=== PATIENT | female | born 1950 | race American Indian/Alaskan Native ===

== ENCOUNTER 2018-07-24 04:13 | Emergency (ER) | payer SELFPAY ==
[2018-07-24 07:14] LABS: Basophils % (Auto) 0.4 % (0.0-1.8); Eosinophils # (Auto) 0.4 K/mm3 (0.0-0.4); Eosinophils % (Auto) 5.2 % (0.0-4.3); Hematocrit 39.4 % (30.3-42.9); Hemoglobin 13.1 gm/dl (10.1-14.3); Lymphocytes # (Auto) 1.3 K/mm3 (1.2-5.4); Lymphocytes % (Auto) 17.3 % (13.4-35.0); Mean Corpuscular HGB Conc 33 % (30-34); Mean Corpuscular Volume 92 fl (79-97); Monocytes # (Auto) 0.4 K/mm3 (0.0-0.8); Monocytes % (Auto) 5.8 % (0.0-7.3); Platelet Count 153 K/mm3 (140-440); Red Blood Count 4.27 M/mm3 (3.65-5.03); Red Cell Distribution Width 14.5 % (13.2-15.2)
[2018-07-24 07:19] LABS: INR 1.18 (0.87-1.13)
[2018-07-24 07:20] LABS: Partial Thromboplastin Time 32.2 Sec. (24.2-36.6)
[2018-07-24 07:27] LABS: Creatine Kinase MB 3.6 ng/mL (0.0-4.0)
[2018-07-24 07:29] LABS: Alanine Aminotransferase 16 units/L (7-56); Albumin 3.9 g/dL (3.9-5)
[2018-07-24 07:30] LABS: BUN/Creatinine Ratio 19; Blood Urea Nitrogen 17 mg/dL (7-17); Calcium 9.4 mg/dL (8.4-10.2); Hemolysis Index 11
[2018-07-24 07:58] LABS: Bilirubin,Direct < 0.2 mg/dL (0-0.2)
[2018-07-24] MEDS ORDERED: K-DUR PO ONE (09:14)
--- NOTE | 2018-07-24 09:18 | Emergency Department Report ---
ED General Adult HPI - General Chief complaint: Dyspnea/Respdistress Stated complaint: COUGH/SOB Time Seen by Provider: 07/24/18 06:26 Source: patient Mode of arrival: Ambulatory Limitations: No Limitations - History of Present Illness Initial comments: 67 year old female complains of cough occasionally productive of white sputum. Patient thinks one day last week she might have had a fever but it did not persist. She did not take her temperature. She denies chest pain pressure or tightness. She denies recent travel or leg pain or swelling. She is not short of breath upon my encounter although she mentioned this at triage. It is apparently very mild in intensity and she does not complain of it to me. She hasn't had any wheezing. She does have a history of atrial fibrillation and is taking Eliquis. -: Gradual, days(s), week(s) Severity scale (0 -10): 0 Improves with: none Worsens with: none Associated Symptoms: denies other symptoms - Related Data Previous Rx's Medication Instructions Recorded Last Taken Type Azithromycin [Zithromax Z-AMADA] 250 mg PO DAILY #6 tablet 07/24/18 Unknown Rx Potassium Chloride [Klor-Con 8] 8 meq PO QDAY #30 tablet 07/24/18 Unknown Rx Allergies Allergy/AdvReac Type Severity Reaction Status Date / Time No Known Allergies Allergy Unverified 07/24/18 04:19 ED Review of Systems ROS: Stated complaint: COUGH/SOB Other details as noted in HPI Constitutional: denies: chills, fever Eyes: denies: eye pain, eye discharge, vision change ENT: denies: ear pain, throat pain Respiratory: cough, shortness of breath (mild). denies: wheezing Cardiovascular: denies: chest pain, palpitations Endocrine: no symptoms reported Gastrointestinal: denies: abdominal pain, nausea, diarrhea Genitourinary: denies: urgency, dysuria, discharge Musculoskeletal: denies: back pain, joint swelling, arthralgia Skin: denies: rash, lesions Neurological: denies: headache, weakness, paresthesias Psychiatric: denies: anxiety, depression Hematological/Lymphatic: denies: easy bleeding, easy bruising ED Past Medical Hx - Past Medical History Previous Medical History?: Yes Hx Hypertension: Yes Additional medical history: Afib - Surgical History Past Surgical History?: Yes Additional Surgical History: Pacemaker, ablation, tubaligation - Social History Smoking Status: Never Smoker Substance Use Type: None - Medications Home Medications: Home Medications Medication Instructions Recorded Confirmed Last Taken Type Azithromycin [Zithromax Z-AMADA] 250 mg PO DAILY #6 tablet 07/24/18 Unknown Rx Potassium Chloride [Klor-Con 8] 8 meq PO QDAY #30 tablet 07/24/18 Unknown Rx ED Physical Exam - General Limitations: No Limitations General appearance: alert, in no apparent distress - Head Head exam: Present: atraumatic, normocephalic - Eye Eye exam: Present: normal appearance. Absent: scleral icterus - ENT ENT exam: Present: mucous membranes moist - Neck Neck exam: Present: normal inspection. Absent: meningismus - Respiratory Respiratory exam: Present: normal lung sounds bilaterally. Absent: respiratory distress - Cardiovascular Cardiovascular Exam: Present: regular rate, normal rhythm. Absent: systolic murmur, diastolic murmur, rubs, gallop - GI/Abdominal GI/Abdominal exam: Present: soft, normal bowel sounds. Absent: distended, tenderness, guarding, rebound, rigid - Extremities Exam Extremities exam: Present: normal inspection - Back Exam Back exam: Present: normal inspection - Neurological Exam Neurological exam: Present: alert, oriented X3, CN II-XII intact. Absent: motor sensory deficit - Psychiatric Psychiatric exam: Present: normal affect, normal mood - Skin Skin exam: Present: warm, dry, intact, normal color. Absent: rash ED Course Vital Signs 07/24/18 07/24/18 07/24/18 04:16 06:00 06:05 Temperature 98.2 F Pulse Rate 82 Respiratory 18 17 Rate Blood Pressure 133/82 Blood Pressure [Left] O2 Sat by Pulse 98 99 99 Oximetry 07/24/18 07/24/18 07/24/18 06:08 06:16 06:30 Temperature 98 F Pulse Rate 60 60 60 Respiratory 14 15 14 Rate Blood Pressure Blood Pressure 127/79 [Left] O2 Sat by Pulse 99 96 96 Oximetry 07/24/18 07/24/18 07/24/18 06:46 07:00 07:16 Temperature Pulse Rate 60 64 60 Respiratory 13 16 15 Rate Blood Pressure 132/70 132/70 Blood Pressure [Left] O2 Sat by Pulse 98 100 96 Oximetry ED Medical Decision Making - Lab Data Result diagrams: 07/24/18 06:56 07/24/18 06:56 Laboratory Results - last 24 hr 07/24/18 07/24/18 07/24/18 06:56 06:56 06:56 WBC 7.6 RBC 4.27 Hgb 13.1 Hct 39.4 MCV 92 MCH 31 MCHC 33 RDW 14.5 Plt Count 153 Lymph % (Auto) 17.3 [place] % (Auto) 5.8 Eos % (Auto) 5.2 H Baso % (Auto) 0.4 Lymph # 1.3 [place] # 0.4 Eos # 0.4 Baso # 0.0 Seg Neutrophils % 71.3 H Seg Neutrophils # 5.4 PT 14.7 INR 1.18 H APTT 32.2 D-Dimer 219.77 Sodium 142 Potassium 3.2 L Chloride 102.9 Carbon Dioxide 27 Anion Gap 15 BUN 17 Creatinine 0.9 Estimated GFR > 60 BUN/Creatinine Ratio 19 Glucose 103 H Calcium 9.4 Total Bilirubin Direct Bilirubin Indirect Bilirubin AST ALT Alkaline Phosphatase Total Creatine Kinase 245 H CK-MB (CK-2) 3.6 CK-MB (CK-2) Rel Index 1.4 Troponin T < 0.010 Total Protein Albumin Albumin/Globulin Ratio 07/24/18 06:56 WBC RBC Hgb Hct MCV MCH MCHC RDW Plt Count Lymph % (Auto) [place] % (Auto) Eos % (Auto) Baso % (Auto) Lymph # [place] # Eos # Baso # Seg Neutrophils % Seg Neutrophils # PT INR APTT D-Dimer Sodium Potassium Chloride Carbon Dioxide Anion Gap BUN Creatinine Estimated GFR BUN/Creatinine Ratio Glucose Calcium Total Bilirubin 0.70 Direct Bilirubin < 0.2 Indirect Bilirubin 0.5 AST 32 ALT 16 Alkaline Phosphatase 93 Total Creatine Kinase CK-MB (CK-2) CK-MB (CK-2) Rel Index Troponin T Total Protein 7.3 Albumin 3.9 Albumin/Globulin Ratio 1.1 - EKG Data -: EKG Interpreted by Mn EKG shows normal: sinus rhythm, axis, intervals, QRS complexes, ST-T waves Rate: normal - EKG Data Interpretation: nonspecific ST-T wave milad - Radiology Data Radiology results: image reviewed (pacemaker present, no acute pulmonary process. Vital cardiac decompensation.) Critical care attestation.: If time is entered above; I have spent that time in minutes in the direct care of this critically ill patient, excluding procedure time. ED Disposition Clinical Impression: Hypokalemia Acute bronchitis Qualifiers: Bronchitis organism: unspecified organism Qualified Code(s): J20.9 - Acute bronchitis, unspecified Disposition: DC-01 TO HOME OR SELFCARE Is pt being admited?: No Does the pt Need Aspirin: No Condition: Stable Instructions: Acute Bronchitis (ED), Hypokalemia (ED) Additional Instructions: Follow-up with usual physicians. Rx as directed. Return any acute change or problem. Prescriptions: Potassium Chloride [Klor-Con 8] 8 meq PO QDAY #30 tablet Azithromycin [Zithromax Z-AMADA] 250 mg PO DAILY #6 tablet Referrals: [facility] MD TIGIST [Primary Care Provider] - 3-5 Days Time of Disposition: 09:19
--- NOTE | 2018-07-24 10:10 | XRay Report ---
PROCEDURE: XR CHEST ROUTINE 2V TECHNIQUE: PA and lateral chest radiographs were obtained. HISTORY: STEFANY COMPARISONS: None. FINDINGS: Frontal and lateral views the chest were acquired. The heart is normal in size. There is a pacing device with leads in right atrium and ventricle. There is no evidence of congestive heart fail ure. IMPRESSION: No active disease in the chest This document is electronically signed by Tha Arce MD., July 24 2018 10:08:17 AM ET
[2018-07-24 10:51] VITALS: BP 114/75
== END 2018-07-24 10:51 | disposition home or self-care (01) ==
LOC: ED 04:13
DX: J20.9 Acute bronchitis, unspecified (principal); E87.6 Hypokalemia; I10 Essential (primary) hypertension; I48.91 Unspecified atrial fibrillation; Z95.0 Presence of cardiac pacemaker; Z98.51 Tubal ligation status
CPT/HCPCS: 36415; 71046; 80048; 80076; 82550; 82553; 84484; 85025; 85379; 85610; 85730; 93005; 93010; 99284

== ENCOUNTER 2020-06-12 14:55 | Emergency (ER) | payer OTHER ==
[2020-06-12 17:18] LABS: Basophils # (Auto) 0.1 K/mm3 (0.0-0.1); Basophils % (Auto) 0.8 % (0.0-1.8); Eosinophils # (Auto) 0.3 K/mm3 (0.0-0.4); Eosinophils % (Auto) 3.2 % (0.0-4.3); Hematocrit 44.2 % (30.3-42.9); Hemoglobin 14.9 gm/dl (10.1-14.3); Lymphocytes # (Auto) 1.5 K/mm3 (1.2-5.4); Lymphocytes % (Auto) 14.2 % (13.4-35.0); Mean Corpuscular HGB Conc 34 % (30-34); Mean Corpuscular Volume 95 fl (79-97); Monocytes # (Auto) 0.6 K/mm3 (0.0-0.8); Monocytes % (Auto) 5.7 % (0.0-7.3); Platelet Count 166 K/mm3 (140-440); Red Blood Count 4.66 M/mm3 (3.65-5.03)
--- NOTE | 2020-06-12 17:35 | Event Note ---
ED Screening Note ED Screening Note: states she feels light headed and near syncope denies any dizziness or room spinning states she has had hypoglycemia in the past states she has been experiencing for a few day no CP no SOB no fever no n/v/d PMHx chronic bronchitis, afib, pacemaker, HTN no allergies to meds states she took her medication today This initial assessment/diagnostic orders/clinical plan/treatment(s) is/are subject to change based on patients health status, clinical progression and re- assessment by fellow clinical providers in the ED. Further treatment and workup at subsequent clinical providers discretion. Patient/guardian urged not to elope from the ED as their condition may be serious if not clinically assessed and managed. Initial orders include: labs, EKG, CXR, UA
[2020-06-12 17:54] LABS: Alanine Aminotransferase 15 units/L (7-56); Albumin 4.6 g/dL (3.9-5); BUN/Creatinine Ratio 10; Blood Urea Nitrogen 8 mg/dL (7-17); Calcium 9.1 mg/dL (8.4-10.2); Hemolysis Index 160
--- NOTE | 2020-06-12 18:01 | XRay Report ---
CHEST 2 VIEWS INDICATION / CLINICAL INFORMATION: dizzy. COMPARISON: 07/12/2019 FINDINGS: SUPPORT DEVICES: Left sided pacemaker HEART / MEDIASTINUM: No significant abnormality. LUNGS / PLEURA: No significant pulmonary or pleural abnormality. No pneumothorax. ADDITIONAL FINDINGS: No significant additional findings. IMPRESSION: Pacing leads remain in place unchanged from 07/12/2019. No acute disease or interval change from the pr ior study Signer Name: Ho Mckenzie MD FACR Signed: 06/12/2020 5:57 PM Workstation Name: [id number]
[2020-06-12 18:38] LABS: Bilirubin,Urine NEG (Negative); Blood,Urine NEG (Negative); Color,Urine Straw (Yellow); Mucus,Urine FEW /HPF; Protein,Urine <15 mg/dL mg/dL (Negative); Urobilinogen,Urine < 2.0 mg/dL (<2.0)
--- NOTE | 2020-06-12 18:58 | Cat Scan Report ---
CT head/brain wo con INDICATION / CLINICAL INFORMATION: 69 years Female; head pressure, near syncope, elevated BP. TECHNIQUE: Routine CT head without contrast. All CT scans at this location are performed using CT dos e reduction for ALARA by means of automated exposure control. COMPARISON: None. FINDINGS: BRAIN / INTRACRANIAL CONTENTS: No acute hemorrhage, mass effect, midline shift, hydrocephalus, or acu te, large territorial infarct. No signs of significant atrophy or chronic infarct. Minimal, nonspecif ic white matter disease suggested. Small lacunar infarcts suggested in the anterior gangliocapsular r egions. CRANIOCERVICAL JUNCTION: No significant abnormality. ORBITS: No significant abnormality of visualized orbits. SINUSES / MASTOIDS: Partial opacification of the ethmoid seen. Air-fluid level seen in the right sphe noid sinus, as well as the right maxillary antrum. Partial opacification of the right frontal sinus. Mucous retention cyst/polyp seen in the left maxillary antrum. ADDITIONAL FINDINGS: None. IMPRESSION: 1. No focal mass, hemorrhage, hydrocephalus, or acute, large territorial infarct. 2. Sinus disease, as described above. Signer Name: Edil Peoples MD, III Signed: 06/12/2020 6:54 PM Workstation Name: [email or web address]
[2020-06-12] MEDS ORDERED: SODIUM CHLORIDE 0.9% 1000 ML 1,000 ML IV ONE (22:32)
--- NOTE | 2020-06-12 22:37 | Emergency Department Report ---
ED Dizziness HPI - General Chief Complaint: Dizziness Stated Complaint: DIZZY Time Seen by Provider: 06/12/20 22:55 Source: patient Mode of arrival: Ambulatory Limitations: No Limitations - History of Present Illness Initial Comments: Patient is a 69-year-old female that presents emergency room with complaints of intermittent dizziness and lightheadedness. Patient states she does not have any symptoms at this time. Patient states she is been resting in the waiting room and her symptoms have resolved. Patient states her symptoms started about 2 weeks ago and are intermittent. Patient states that about 2 to 3 days ago they became more frequent. Patient states that the dizziness and lightheadedness are better with rest and worse with exertion and movement. Patient states they are also modifications with position. Patient denies chest pain. Patient denies shortness of breath. Patient denies blurry vision. Patient denies syncopal episode. Patient denies loss of consciousness. Patient denies recent travel. Patient denies recent international travel. Patient denies exposure to the novel coronavirus. Patient denies sick contacts. Patient denies fever and chills. Patient denies cough. Patient denies diarrhea. Patient denies coming in contact with anybody with symptoms of the novel coronavirus. Complaint: dizziness, lightheadedness -: Sudden Timing: intermittent, now resolved Description: lightheadedness History of Same: No History of Trauma: No Severity: mild Improves With: rest Worsens With: position Associated Symptoms: denies other symptoms. denies: ataxia, chest pain, confusion, cough, diaphoresis, fever/chills, loss of appetite, malaise, rash, seizure, shortness of breath, syncope, weakness - Related Data Previous Rx's Medication Instructions Recorded Last Taken Type Azithromycin [Zithromax Z-AMADA] 250 mg PO DAILY #6 tablet 07/24/18 Unknown Rx Potassium Chloride [Klor-Con 8] 8 meq PO QDAY #30 tablet 07/24/18 Unknown Rx Dicyclomine [Bentyl] 20 mg PO QID #10 tablet 07/12/19 Unknown Rx Pantoprazole [Protonix] 40 mg PO QDAY #30 tablet 07/12/19 Unknown Rx Allergies Allergy/AdvReac Type Severity Reaction Status Date / Time No Known Allergies Allergy Verified 06/12/20 16:53 ED Review of Systems ROS: Stated complaint: DIZZY Other details as noted in HPI Constitutional: denies: chills, fever Eyes: denies: eye pain, eye discharge, vision change ENT: denies: ear pain, throat pain Respiratory: denies: cough, shortness of breath, wheezing Cardiovascular: denies: chest pain, palpitations Endocrine: no symptoms reported Gastrointestinal: denies: abdominal pain, nausea, diarrhea Genitourinary: denies: urgency, dysuria, discharge Musculoskeletal: denies: back pain, joint swelling, arthralgia Skin: denies: rash, lesions Neurological: as per HPI. denies: headache, weakness, paresthesias Psychiatric: denies: anxiety, depression Hematological/Lymphatic: denies: easy bleeding, easy bruising ED Past Medical Hx - Past Medical History Previous Medical History?: Yes Hx Hypertension: Yes Additional medical history: Afib - Surgical History Past Surgical History?: Yes Additional Surgical History: Pacemaker, ablation, tubaligation - Family History Family history: no significant - Social History Smoking Status: Never Smoker Substance Use Type: None - Medications Home Medications: Home Medications Medication Instructions Recorded Confirmed Last Taken Type Azithromycin [Zithromax Z-AMADA] 250 mg PO DAILY #6 tablet 07/24/18 Unknown Rx Potassium Chloride [Klor-Con 8] 8 meq PO QDAY #30 tablet 07/24/18 Unknown Rx Dicyclomine [Bentyl] 20 mg PO QID #10 tablet 07/12/19 Unknown Rx Pantoprazole [Protonix] 40 mg PO QDAY #30 tablet 07/12/19 Unknown Rx ED Physical Exam - General Limitations: No Limitations General appearance: alert, in no apparent distress - Head Head exam: Present: atraumatic, normocephalic - Eye Eye exam: Present: normal appearance, PERRL Pupils: Present: normal accommodation - ENT ENT exam: Present: mucous membranes moist - Neck Neck exam: Present: normal inspection, full ROM. Absent: tenderness, meningismus, lymphadenopathy, thyromegaly - Respiratory Respiratory exam: Present: normal lung sounds bilaterally. Absent: respiratory distress, wheezes, rales - Cardiovascular Cardiovascular Exam: Present: regular rate, normal rhythm. Absent: systolic murmur, diastolic murmur, rubs, gallop - GI/Abdominal GI/Abdominal exam: Present: soft, normal bowel sounds. Absent: distended, tenderness, guarding - Rectal Rectal exam: Present: deferred - Extremities Exam Extremities exam: Present: normal inspection - Back Exam Back exam: Present: normal inspection - Neurological Exam Neurological exam: Present: alert, oriented X3 - Psychiatric Psychiatric exam: Present: normal affect, normal mood - Skin Skin exam: Present: warm, dry, intact, normal color. Absent: rash ED Course Vital Signs 06/12/20 06/12/20 06/12/20 16:51 22:27 22:31 Temperature 97.9 F Pulse Rate 72 86 Respiratory 20 13 Rate Blood Pressure 164/131 145/97 146/94 O2 Sat by Pulse 100 98 Oximetry 06/12/20 06/12/20 06/12/20 22:45 23:01 23:03 Temperature Pulse Rate 78 76 70 Respiratory 20 15 17 Rate Blood Pressure 146/94 139/89 139/89 O2 Sat by Pulse 98 99 99 Oximetry 06/12/20 06/13/20 06/13/20 23:53 00:00 00:30 Temperature Pulse Rate 73 70 79 Respiratory 11 L 15 16 Rate Blood Pressure 139/89 130/86 140/76 O2 Sat by Pulse 98 98 Oximetry 06/13/20 01:03 Temperature Pulse Rate 78 Respiratory 10 L Rate Blood Pressure 140/76 O2 Sat by Pulse 97 Oximetry - Reevaluation(s) Reevaluation #1: Patient states she is asymptomatic. Patient tolerated p.o. intake. Patient had repeat labs her potassium normal. I discussed all results and clinical findings with patient. I discussed plan of care with patient. Patient agrees with plan of care. Patient is stable for discharge. Patient will be discharged home. Patient given discharge instru ctions. Patient voiced understanding of discharge instructions. 06/13/20 01:25 ED Medical Decision Making - Lab Data Result diagrams: 06/12/20 17:02 06/13/20 00:17 - EKG Data -: EKG Interpreted by Me EKG shows normal: sinus rhythm, axis, intervals, QRS complexes, ST-T waves Rate: normal - Radiology Data Radiology results: report reviewed, image reviewed interpreted by me: Chest x-ray: No pneumonia, no pneumothorax, pacer noted. No osseous findings, no acute findings CT head/brain wo con INDICATION / CLINICAL INFORMATION: 69 years Female; head pressure, near syncope, elevated BP. TECHNIQUE: Routine CT head without contrast. All CT scans at this location are performed using CT dose reduction for ALARA by means of automated exposure control. COMPARISON: None. FINDINGS: BRAIN / INTRACRANIAL CONTENTS: No acute hemorrhage, mass effect, midline shift, hydrocephalus, or acute, large territorial infarct. No signs of significant atrophy or chronic infarct. Minimal, nonspecific white matter disease suggested. Small lacunar infarcts suggested in the anterior gangliocapsular regions. CRANIOCERVICAL JUNCTION: No significant abnormality. ORBITS: No significant abnormality of visualized orbits. SINUSES / MASTOIDS: Partial opacification of the ethmoid seen. Air-fluid level seen in the right sphenoid sinus, as well as the right maxillary antrum. Partial opacification of the right frontal sinus. Mucous retention cyst/polyp seen in the left maxillary antrum. ADDITIONAL FINDINGS: None. IMPRESSION: 1. No focal mass, hemorrhage, hydrocephalus, or acute, large territorial infarct. 2. Sinus disease, as described above. CHEST 2 VIEWS INDICATION / CLINICAL INFORMATION: dizzy. COMPARISON: 07/12/2019 FINDINGS: SUPPORT DEVICES: Left sided pacemaker HEART / MEDIASTINUM: No significant abnormality. LUNGS / PLEURA: No significant pulmonary or pleural abnormality. No pneumothorax. ADDITIONAL FINDINGS: No significant additional findings. IMPRESSION: Pacing leads remain in place unchanged from 07/12/2019. No acute disease or interval change from the prior study - Medical Decision Making Patient is a 69-year-old female who presents emergency room with complaints of dizziness and lightheadedness has been going on for 2 weeks. Patient states her symptoms are intermittent and becoming more frequent. Patient states he came to the emergency room because of last 2 to 3 days has been more frequent. Patient ambulatory in the ER. Patient has a normal neurologic exam. Patient had a head CT which was negative for acute findings. Patient had a chest x-ray which was negative for acute findings. Patient had an EKG which was negative for acute findings showed normal ST. I personally reviewed the EKG and the chest x-ray. Patient had labs done which were essentially markable except for elevated potassium. Patient was given fluids. Patient tolerated p.o. intake. I then rechecked the potassium level. Patient's repeat potassium level was normal. Patient is stable for discharge. Patient discharged home. - Differential Diagnosis Chest pain, Critical care attestation.: If time is entered above; I have spent that time in minutes in the direct care of this critically ill patient, excluding procedure time. ED Disposition Clinical Impression: Dizziness, Lightheadedness, Dehydration, Hyperkalemia Disposition: TO HOME OR SELFCARE Is pt being admited?: No Does the pt Need Aspirin: No Condition: Stable Instructions: Hyperkalemia, [id number], Rehydration, Adult, Dizziness Additional Instructions: Patient to follow-up with primary care in 2 to 3 days. Patient to follow-up with cardiology and neurology in 2 to 3 days. Patient to rest. Patient to increase water. Patient to avoid strenuous exercise or heavy lifting until cleared by cardiology and neurology. Patient to take Tylenol or ibuprofen as needed for pain. Patient to return to the ER if condition worsens, changes or new symptoms arise. Referrals: PRIMARY MD ULISES [Primary Care Provider] - 2-3 Days WINSOME MCARTHUR MD [Staff Physician] - 2-3 Days RADHA WALLACE MD [Staff Physician] - 2-3 Days Time of Disposition: 01:31
[2020-06-13 01:00] LABS: BUN/Creatinine Ratio 8; Blood Urea Nitrogen 6 mg/dL (7-17); Calcium 8.5 mg/dL (8.4-10.2); Hemolysis Index 7
[2020-06-13 01:40] VITALS: BP 128/81
--- NOTE | 2020-06-13 17:51 | Electrocardiograph Report ---
[facility] Test Date: 2020-06-12 Test Time: 17:30:02 Pat Name: JACQUELINE RUIZ Department: Room: Gender: F Residential Roofer: JOSE ALEJANDRO : 1950 Requested By: TORIBIO PRUITT III Order Number: [id number] Reading MD: Nahid Hankins Measurements Intervals [place] Rate: 75 P: 62 ND: 149 QRS: -24 QRSD: 86 T: -59 QT: 466 QTc: 520 Interpretive Statements Sinus rhythm Anteroseptal infarct, age indeterminate Abnrm T, consider ischemia, anterolateral lds Prolonged QT interval No previous ECG available for comparison Electronically Signed On 06-13-2020 17:51:30 EDT by Nahid Hankins
== END 2020-06-13 01:40 | disposition home or self-care (01) ==
LOC: ED 14:55
DX: E86.0 Dehydration (principal); E87.6 Hypokalemia; I10 Essential (primary) hypertension; Z79.899 Other long term (current) drug therapy
CPT/HCPCS: 36415; 70450; 71046; 80048; 80053; 81001; 82550; 83735; 84484; 85025; 93005; 96360; 99284; J7030

== ENCOUNTER 2020-06-17 16:10 | Observation (INO) | payer MEDICAID, OTHER ==
[2020-06-17] MEDS ORDERED: ASPIRIN 325 MG TAB PO ONE (18:22)
[2020-06-17 19:25] LABS: Basophils # (Auto) 0.1 K/mm3 (0.0-0.1); Eosinophils # (Auto) 0.2 K/mm3 (0.0-0.4); Eosinophils % (Auto) 1.9 % (0.0-4.3); Hematocrit 43.7 % (30.3-42.9); Hemoglobin 14.5 gm/dl (10.1-14.3); Lymphocytes # (Auto) 1.7 K/mm3 (1.2-5.4); Lymphocytes % (Auto) 21.3 % (13.4-35.0); Mean Corpuscular HGB Conc 33 % (30-34); Mean Corpuscular Volume 95 fl (79-97); Monocytes # (Auto) 0.6 K/mm3 (0.0-0.8); Monocytes % (Auto) 7.2 % (0.0-7.3); Platelet Count 181 K/mm3 (140-440); Red Blood Count 4.58 M/mm3 (3.65-5.03); Red Cell Distribution Width 14.1 % (13.2-15.2)
--- NOTE | 2020-06-17 19:35 | Event Note ---
ED Screening Note Date of service: 06/17/20 Time: 19:34 ED Screening Note: Patient presents with complaints of diffuse anterior chest pain. Onset yesterday. She states been intermittent in nature. She denies any other associated symptoms. Past medical history includes A. fib status post ablation, and status post pacemaker, currently on Eliquis; hypertension and hyperlipidemia. She states that she had a treadmill stress test about 5 years ago and at that time it was okay. This initial assessment/diagnostic orders/clinical plan/treatment(s) is/are subject to change based on patients health status, clinical progression and re- assessment by fellow clinical providers in the ED. Further treatment and workup at subsequent clinical providers discretion. Patient/guardian urged not to elope from the ED as their condition may be serious if not clinically assessed and managed. Initial orders include: Chest pain order set
--- NOTE | 2020-06-17 19:35 | XRay Report ---
CHEST 2 VIEWS INDICATION / CLINICAL INFORMATION: Chest pain. COMPARISON: 06/12/20. FINDINGS: SUPPORT DEVICES: The position of the dual chamber left subclavian transvenous pacemaker has not vargas ed. HEART / MEDIASTINUM: The heart size and pulmonary vasculature are normal. There is mild aortic tortuo sity without aneurysm. LUNGS / PLEURA: No significant pulmonary or pleural abnormality. No pneumothorax. ADDITIONAL FINDINGS: No significant additional findings. IMPRESSION: No acute abnormality or significant change. Signer Name: Darvin Mathew MD Signed: 06/17/2020 7:31 PM Workstation Name: [id number]
[2020-06-17 19:43] LABS: Alanine Aminotransferase 13 units/L (7-56); Albumin 4.2 g/dL (3.9-5); BUN/Creatinine Ratio 9; Blood Urea Nitrogen 7 mg/dL (7-17); Calcium 9.1 mg/dL (8.4-10.2); Hemolysis Index 10
--- NOTE | 2020-06-18 02:12 | Emergency Department Report ---
ED Chest Pain HPI - General Chief Complaint: Chest Pain Stated Complaint: CHEST PAIN Time Seen by Provider: 06/18/20 01:54 Source: patient Mode of arrival: Ambulatory Limitations: No Limitations - History of Present Illness Initial Comments: Patient is 69 years old female with history of hypertension and atrial fibrillation status post ablation according to the patient report. Patient presented to the ER complaining of substernal chest pain, tightness with no radiation. Patient rated her pain as 5 out of 10. Patient denied any shortness of breath, cough or fever. Patient stated that she took aspirin before she came to the ER. MD Complaint: chest pain -: Last night Onset: during rest Pain Location: substernal Pain Radiation: none Severity scale (0 -10): 5 Quality: tightness Consistency: constant Treatments Prior to Arrival: aspirin - Related Data Previous Rx's Medication Instructions Recorded Last Taken Type Apixaban [Eliquis] 5 mg PO Q12HR #60 tablet 06/19/20 Unknown Rx AtorvaSTATin [Lipitor] 40 mg PO QHS #30 tablet 06/19/20 Unknown Rx Metoprolol [Lopressor TAB] 50 mg PO BID #60 tablet 06/19/20 Unknown Rx Pantoprazole [Protonix TAB] 40 mg PO QDAY #30 tablet 06/19/20 Unknown Rx Allergies Allergy/AdvReac Type Severity Reaction Status Date / Time No Known Allergies Allergy Verified 06/12/20 16:53 Heart Score - HEART Score History: Moderately suspicious EKG: Non-specific Age: > 65 Risk factors: > 3 risk factors or hx of atherosclerotic disease Troponin: < normal limit HEART Score: 6 - EKG Read Time Time EKG Completed: 08:20 EKG Read Time: 08:20 - Critical Actions Critical Actions: 4-6 pts:12-16.6% risk of adverse cardiac event. Should be admitted ED Review of Systems ROS: Stated complaint: CHEST PAIN Other details as noted in HPI Comment: All other systems reviewed and negative Constitutional: denies: chills, fever Cardiovascular: chest pain. denies: palpitations Gastrointestinal: denies: abdominal pain, nausea, vomiting Musculoskeletal: denies: back pain Neurological: denies: headache, weakness, numbness, paresthesias, confusion ED Past Medical Hx - Past Medical History Previous Medical History?: Yes Hx Hypertension: Yes Additional medical history: Afib - Surgical History Additional Surgical History: Pacemaker, ablation, tubaligation - Social History Smoking Status: Never Smoker Substance Use Type: None - Medications Home Medications: Home Medications Medication Instructions Recorded Confirmed Last Taken Type Apixaban [Eliquis] 5 mg PO Q12HR #60 tablet 06/19/20 Unknown Rx AtorvaSTATin [Lipitor] 40 mg PO QHS #30 tablet 06/19/20 Unknown Rx Metoprolol [Lopressor TAB] 50 mg PO BID #60 tablet 06/19/20 Unknown Rx Pantoprazole [Protonix TAB] 40 mg PO QDAY #30 tablet 06/19/20 Unknown Rx ED Physical Exam - General Limitations: No Limitations General appearance: alert, in no apparent distress - Head Head exam: Present: atraumatic, normocephalic, normal inspection - Eye Eye exam: Present: normal appearance, PERRL - ENT ENT exam: Present: normal exam, normal orophraynx, mucous membranes moist - Neck Neck exam: Present: normal inspection, full ROM. Absent: tenderness, menin gismus - Respiratory Respiratory exam: Present: normal lung sounds bilaterally - Cardiovascular Cardiovascular Exam: Present: regular rate, normal rhythm, normal heart sounds - GI/Abdominal GI/Abdominal exam: Present: soft, normal bowel sounds. Absent: distended, tenderness, guarding, rebound, rigid, organomegaly, mass, bruit, pulsatile mass, hernia - Extremities Exam Extremities exam: Present: normal inspection, full ROM, normal capillary refill. Absent: tenderness - Back Exam Back exam: Present: normal inspection, full ROM. Absent: CVA tenderness (R), CVA tenderness (L) - Neurological Exam Neurological exam: Present: alert, oriented X3, CN II-XII intact - Psychiatric Psychiatric exam: Present: normal mood - Skin Skin exam: Present: warm, intact, normal color ED Course Vital Signs 06/17/20 06/18/20 06/18/20 18:20 02:00 02:01 Temperature 98.6 F 98.0 F Pulse Rate 70 65 Respiratory 18 13 Rate Blood Pressure 160/85 Blood Pressure 151/111 [Right] O2 Sat by Pulse 96 99 Oximetry 06/18/20 06/18/20 06/18/20 02:15 02:31 02:45 Temperature Pulse Rate 60 69 63 Respiratory 12 Rate Blood Pressure 147/88 146/84 142/77 Blood Pressure [Right] O2 Sat by Pulse 99 99 99 Oximetry 0506/18/20 06/18/20 03:01 03:11 03:18 Temperature Pulse Rate 68 61 72 Respiratory 12 13 Rate Blood Pressure 135/76 135/76 Blood Pressure [Right] O2 Sat by Pulse 98 97 Oximetry ED Medical Decision Making - Lab Data Result diagrams: 06/19/20 05:09 06/19/20 05:09 - EKG Data -: EKG Interpreted by Me EKG shows normal: sinus rhythm Rate: normal - EKG Data Interpretation: no acute changes - Radiology Data Radiology results: report reviewed - Medical Decision Making Patient is 69 years old female with history of hypertension and atrial fibrillation status post ablation according to the patient report. Patient presented to the ER complaining of substernal chest pain, tightness with no radiation. Patient rated her pain as 5 out of 10. Patient denied any shortness of breath, cough or fever. Patient stated that she took aspirin before she came to the ER. EKG showed no ST elevation. Chest x-ray is unremarkable. Labs reviewed and is negative including troponin. I discussed the patient with Dr. Valencia, he agreed to admit the patient to medical service for further management. Critical care attestation.: If time is entered above; I have spent that time in minutes in the direct care of this critically ill patient, excluding procedure time. ED Disposition Clinical Impression: Acute chest pain Disposition: OP ADMIT IP TO THIS HOSP Is pt being admited?: Yes Condition: Stable
[2020-06-18] MEDS ORDERED: SENNOSIDES 8.6 MG TAB PO PRN (02:46)
[2020-06-18] MEDS ORDERED: ALUM-MAG HYDROXIDE-SIMETHICONE 200-200-20MG/5ML ORAL LIQD 30 ML PO PRN (02:46)
[2020-06-18] MEDS ORDERED: traMADol 50 MG TAB PO PRN (02:46)
[2020-06-18] MEDS ORDERED: ONDANSETRON 4 MG/2 ML INJ IV PRN (02:46)
[2020-06-18] MEDS ORDERED: METOCLOPRAMIDE 10 MG/2 ML INJ IV PRN (02:46)
[2020-06-18] MEDS ORDERED: ACETAMINOPHEN 325 MG TAB PO PRN ×2 (02:46)
[2020-06-18] MEDS ORDERED: MAGNESIUM HYDROXIDE (MOM) ORAL LIQD UDC PO PRN (02:46)
[2020-06-18] MEDS ORDERED: hydrALAZINE 20 MG/1 ML INJ IV PRN (02:53)
[2020-06-18] MEDS ORDERED: ASPIRIN 325 MG TAB PO ONE (02:54)
[2020-06-18] MEDS ORDERED: traZODone 50 MG TAB PO PRN (02:56)
--- NOTE | 2020-06-18 03:10 | History and Physical Report ---
History of Present Illness Date of examination: 06/18/20 Date of admission: 06/18/20 02:21 Chief complaint: Chest pain History of present illness: Patient is 69 years old female with history of hypertension and atrial fibrillation status post ablation according to the patient report. Patient presented to the ER complaining of substernal chest pain, tightness with no radiation. Patient rated her pain as 5 out of 10. Patient denied any shortness of breath, cough or fever. Patient stated that she took aspirin before she came to the ER. ED work-up shows WBC 8.2, 9.1 Hemoglobin 14.5, platelets 181, sodium 141 potassium 3.3 creatinine 0.8, serum glucose 110, calcium 9.1., Troponin negative chest x-ray no acute finding. Patient seen in ED at bedside. Patient alert and oriented x3. Patient complaining of reflux and indigestion that is chronic. Patient is on PPI. Patient complaining to the ED chest pain. Echo and stress test ordered. Cardiology consult. Reviewed medication record, medical record, and vital signs. Past History Past Medical History: atrial fib, hypertension Past Surgical History: No surgical history Social history: no significant social history, lives with family Family history: no significant family history Medications and Allergies Allergies Allergy/AdvReac Type Severity Reaction Status Date / Time No Known Allergies Allergy Verified 06/12/20 16:53 Home Medications Medication Instructions Recorded Confirmed Last Taken Type Azithromycin [Zithromax Z-AMADA] 250 mg PO DAILY #6 tablet 07/24/18 Unknown Rx Potassium Chloride [Klor-Con 8] 8 meq PO QDAY #30 tablet 07/24/18 Unknown Rx Dicyclomine [Bentyl] 20 mg PO QID #10 tablet 07/12/19 Unknown Rx Pantoprazole [Protonix] 40 mg PO QDAY #30 tablet 07/12/19 Unknown Rx Active Meds: Active Medications Acetaminophen (Acetaminophen 325 Mg Tab) 650 mg PO Q4H PRN PRN Reason: Pain MILD(1-3)/Fever >100.5/MIRANDA Al Hydrox/Mg Hydrox/Simethicone (Alum-Mag Hydroxide-Simethicone [phone]/5ml Oral Liqd 30 Ml) 30 ml PO Q4H PRN PRN Reason: Indigestion Famotidine (Famotidine 20 Mg/2 Ml Inj) 20 mg IV BID RAJESH Hydralazine HCl (Hydralazine 20 Mg/1 Ml Inj) 4 mg IV Q4HR PRN PRN Reason: Hypertension Magnesium Hydroxide (Magnesium Hydroxide (Mom) Oral Liqd Udc) 30 ml PO Q4H PRN PRN Reason: Constipation Metoclopramide HCl (Metoclopramide 10 Mg/2 Ml Inj) 10 mg IV Q6H PRN PRN Reason: Nausea And Vomiting Ondansetron HCl (Ondansetron 4 Mg/2 Ml Inj) 4 mg IV Q8H PRN PRN Reason: Nausea And Vomiting Senna (Sennosides 8.6 Mg Tab) 8.6 mg PO Q12HR PRN PRN Reason: Constipation Sodium Chloride (Sodium Chloride 0.9% 10 Ml Flush Syringe) 10 ml IV BID RAJESH Sodium Chloride (Sodium Chloride 0.9% 10 Ml Flush Syringe) 10 ml IV PRN PRN PRN Reason: LINE FLUSH Tramadol HCl (Tramadol 50 Mg Tab) 50 mg PO Q6H PRN PRN Reason: Pain, Moderate (4-6) Trazodone HCl (Trazodone 50 Mg Tab) 50 mg PO QHS PRN PRN Reason: Insomnia Review of Systems Constitutional: fatigue Ears, nose, mouth and throat: no epistaxis, no bleeding gums Breasts: no discharge Cardiovascular: chest pain, shortness of breath, high blood pressure Respiratory: shortness of breath Gastrointestinal: no melena Genitourinary Female: no dysmenorrhea Rectal: no itching, no hemorrhoids Musculoskeletal: muscle weakness Integumentary: no rash, no pruritis Neurological: no convulsions Psychiatric: no confusion Hematologic/Lymphatic: no easy bruising, no easy bleeding, no lymphadenopathy, no lymphedema Allergic/Immunologic: no urticaria Exam - Constitutional Vitals: Temp Pulse Resp BP Pulse Ox 98.6 F 63 12 142/77 99 06/17/20 18:20 06/18/20 02:45 06/18/20 02:31 06/18/20 02:45 06/18/20 02:45 General appearance: Present: mild distress, well-nourished - EENT Eyes: Present: PERRL ENT: hearing intact, clear oral mucosa - Neck Neck: Present: supple, normal ROM - Respiratory Respiratory effort: normal Respiratory: bilateral: CTA - Cardiovascular Heart Sounds: Present: S1 & S2. Absent: rub, click - Extremities Extremities: pulses symmetrical, No edema Peripheral Pulses: within normal limits - Abdominal General gastrointestinal: Present: soft, non-tender, non-distended, normal bowel sounds Female genitourinary: Present: normal - Integumentary Integumentary: Present: clear, warm, dry - Musculoskeletal Musculoskeletal: gait normal, strength equal bilaterally - Psychiatric Psychiatric: appropriate mood/affect, intact judgment & insight, cooperative - Neurologic Neurologic: CNII-XII intact, moves all extremities - Allied Health Allied health notes reviewed: nursing HEART Score - HEART Score EKG: Non-specific Age: > 65 Risk factors: > 3 risk factors or hx of atherosclerotic disease Troponin: Troponin T < 0.010 ng/mL (0.00-0.029) 06/18/20 00:43 Troponin: < normal limit - Critical Actions Critical Actions: 4-6 pts:12-16.6% risk of adverse cardiac event. Should be admitted Results - Labs CBC & Chem 7: 06/18/20 05:16 06/17/20 19:08 Labs: Abnormal lab results 06/17/20 06/17/20 Range/Units 19:08 19:08 Hgb 14.5 H (10.1-14.3) gm/dl Hct 43.7 H (30.3-42.9) % Potassium 3.3 L (3.6-5.0) mmol/L Glucose 110 H (65-100) mg/dL Assessment and Plan - Patient Problems (1) Acute chest pain Current Visit: Yes Status: Acute Plan to address problem: Echo and stress test ordered Cardiology consult Aspirin and statin Chest x-ray and troponin (2) Hypokalemia Current Visit: Yes Status: Acute Plan to address problem: Replace potassium Monitor electrolytes and replace as needed (3) A-fib Current Visit: Yes Status: Acute Plan to address problem: Patient has history of A. fib with ablation Monitor cardiac rhythm Continue aspirin and statin (4) DVT prophylaxis Current Visit: Yes Status: Acute Plan to address problem: Subcutaneous Lovenox
[2020-06-18] MEDS ORDERED: POTASSIUM CHLORIDE ER 20 MEQ TAB PO ONE ×2 (03:18→16:23)
[2020-06-18 06:06] LABS: Basophils % (Auto) 0.4 % (0.0-1.8); Eosinophils # (Auto) 0.2 K/mm3 (0.0-0.4); Eosinophils % (Auto) 1.7 % (0.0-4.3); Hematocrit 39.5 % (30.3-42.9); Hemoglobin 13.2 gm/dl (10.1-14.3); Lymphocytes # (Auto) 1.7 K/mm3 (1.2-5.4); Lymphocytes % (Auto) 18.6 % (13.4-35.0); Mean Corpuscular HGB Conc 33 % (30-34); Mean Corpuscular Volume 94 fl (79-97); Monocytes # (Auto) 0.7 K/mm3 (0.0-0.8); Monocytes % (Auto) 7.7 % (0.0-7.3); Platelet Count 179 K/mm3 (140-440); Red Blood Count 4.22 M/mm3 (3.65-5.03); Red Cell Distribution Width 13.5 % (13.2-15.2)
[2020-06-18 06:24] LABS: Blood Urea Nitrogen 7 mg/dL (7-17); Calcium 8.6 mg/dL (8.4-10.2); Hemolysis Index 2
[2020-06-18 06:25] LABS: BUN/Creatinine Ratio 10
[2020-06-18] MEDS ORDERED: ENOXAPARIN 40 MG/0.4 ML INJ SUB-Q SCH (10:00)
[2020-06-18] MEDS ORDERED: SODIUM CHLORIDE 0.9% 500 ML 500 ML ONE (10:36)
[2020-06-18] MEDS: POTASSIUM CHLORIDE 10 MEQ 10 MEQ/100 ML BAG IV SCH ×2 (10:40→11:50)
[2020-06-18] MEDS: FAMOTIDINE 20 MG/2 ML INJ IV SCH ×2 (10:44→22:25)
[2020-06-18] MEDS: ASPIRIN EC 81 MG TAB PO SCH (10:44)
--- NOTE | 2020-06-18 11:09 | Consultation ---
History of Present Illness Consult date: 06/18/20 Consult reason: chest pain History of present illness: The patient is a 69-year-old woman who presented to the hospital with atypical, nonexertional and poorly characterized chest pain. She describes a sensation of tingling on both sides of her chest which prompted her to come to the emergency room. In the emergency room her EKG was a normal sinus rhythm with T wave inversions in the anterior leads, no old ECGs for comparison. Serial troponin levels were normal x3. Today, she is in her room, ambulatory, looks and feels well, no further symptoms. The patient recently moved here from [place], has an extensive cardiac history of paroxysmal atrial fibrillation and sinus node dysfunction. In 2017, she underwent atrial fibrillation ablation and placement of a dual-chamber pacemaker. Her current treatment includes Eliquis for long-term oral anticoagulation. There is no history of coronary artery disease or cardiomyop athy. She states that a cardiac catheterization done at the same time in 2017 demonstrated no significant coronary artery disease. Today, she was ordered for a stress test, which was canceled due to the presence of marked hypokalemia with a potassium of 3.0. Past History Past Medical History: atrial fib, hypertension Past Surgical History: Other (Atrial fibrillation ablation) Social history: no significant social history, lives with family Family history: no significant family history Medications and Allergies Allergies Allergy/AdvReac Type Severity Reaction Status Date / Time No Known Allergies Allergy Verified 06/12/20 16:53 Home Medications Medication Instructions Recorded Confirmed Last Taken Type Azithromycin [Zithromax Z-AMADA] 250 mg PO DAILY #6 tablet 07/24/18 Unknown Rx Potassium Chloride [Klor-Con 8] 8 meq PO QDAY #30 tablet 07/24/18 Unknown Rx Dicyclomine [Bentyl] 20 mg PO QID #10 tablet 07/12/19 Unknown Rx Pantoprazole [Protonix] 40 mg PO QDAY #30 tablet 07/12/19 Unknown Rx Active Meds: Active Medications Acetaminophen (Acetaminophen 325 Mg Tab) 650 mg PO Q4H PRN PRN Reason: Pain MILD(1-3)/Fever >100.5/MIRANDA Al Hydrox/Mg Hydrox/Simethicone (Alum-Mag Hydroxide-Simethicone [phone]/5ml Oral Liqd 30 Ml) 30 ml PO Q4H PRN PRN Reason: Indigestion Aspirin (Aspirin Ec 81 Mg Tab) 81 mg PO QDAY [facility] Last Admin: 06/18/20 10:44 Dose: 81 mg Documented by: Atorvastatin Calcium (Atorvastatin 40 Mg Tab) 40 mg PO QHS [facility] Enoxaparin Sodium (Enoxaparin 40 Mg/0.4 Ml Inj) 40 mg SUB-Q DAILY [facility]; Protocol Last Admin: 06/18/20 10:44 Dose: 40 mg Documented by: Famotidine (Famotidine 20 Mg/2 Ml Inj) 20 mg IV BID [facility] Last Admin: 06/18/20 10:44 Dose: 20 mg Documented by: Hydralazine HCl (Hydralazine 20 Mg/1 Ml Inj) 4 mg IV Q4HR PRN PRN Reason: SBP >/=160;DBP >/=100 Magnesium Hydroxide (Magnesium Hydroxide (Mom) Oral Liqd Udc) 30 ml PO Q4H PRN PRN Reason: Constipation Metoclopramide HCl (Metoclopramide 10 Mg/2 Ml Inj) 10 mg IV Q6H PRN PRN Reason: Nausea And Vomiting Ondansetron HCl (Ondansetron 4 Mg/2 Ml Inj) 4 mg IV Q8H PRN PRN Reason: Nausea And Vomiting Senna (Sennosides 8.6 Mg Tab) 8.6 mg PO Q12HR PRN PRN Reason: Constipation Sodium Chloride (Sodium Chloride 0.9% 10 Ml Flush Syringe) 10 ml IV BID [facility] Last Admin: 06/18/20 10:44 Dose: 10 ml Documented by: Sodium Chloride (Sodium Chloride 0.9% 10 Ml Flush Syringe) 10 ml IV PRN PRN PRN Reason: LINE FLUSH Tramadol HCl (Tramadol 50 Mg Tab) 50 mg PO Q6H PRN PRN Reason: Pain, Moderate (4-6) Trazodone HCl (Trazodone 50 Mg Tab) 50 mg PO QHS PRN PRN Reason: Insomnia Physical Examination Vital Signs Temp Pulse Resp BP Pulse Ox 98.6 F 70 18 151/111 96 06/17/20 18:20 06/17/20 18:20 06/17/20 18:20 06/17/20 18:20 06/17/20 18:20 General appearance: no acute distress HEENT: Positive: PERRL Neck: Positive: neck supple Cardiac: Positive: Reg Rate and Rhythm Lungs: Positive: clear to auscultation Neuro: Positive: Grossly Intact Abdomen: Positive: Soft Female genitourinary: deferred Skin: Positive: Clear Extremities: Absent: edema Results 06/18/20 05:16 06/18/20 05:16 Cardiac Enzymes 06/17/20 Range/Units 19:08 AST 21 (5-40) units/L CBC 06/17/20 06/18/20 Range/Units 19:08 05:16 WBC 8.2 9.1 (4.5-11.0) K/mm3 RBC 4.58 4.22 (3.65-5.03) M/mm3 Hgb 14.5 H 13.2 (10.1-14.3) gm/dl Hct 43.7 H 39.5 (30.3-42.9) % Plt Count 181 179 (140-440) K/mm3 Lymph # (Auto) 1.7 1.7 (1.2-5.4) K/mm3 [place] # (Auto) 0.6 0.7 (0.0-0.8) K/mm3 Eos # (Auto) 0.2 0.2 (0.0-0.4) K/mm3 Baso # (Auto) 0.1 0.0 (0.0-0.1) K/mm3 Comprehensive Metabolic Panel 06/17/20 06/18/20 Range/Units 19:08 05:16 Sodium 141 139 (137-145) mmol/L Potassium 3.3 L 3.0 L (3.6-5.0) mmol/L Chloride 100.9 102.8 (98-107) mmol/L Carbon Dioxide 29 27 (22-30) mmol/L BUN 7 7 (7-17) mg/dL Creatinine 0.8 0.7 (0.6-1.2) mg/dL Glucose 110 H 96 (65-100) mg/dL Calcium 9.1 8.6 (8.4-10.2) mg/dL AST 21 (5-40) units/L ALT 13 (7-56) units/L Alkaline Phosphatase 87 (35-129) units/L Total Protein 8.1 (6.3-8.2) g/dL Albumin 4.2 (3.9-5) g/dL EKG interpretations - Telemetry EKG Rhythm: Sinus Rhythm Assessment and Plan - Patient Problems (1) Atypical chest pain Current Visit: Yes Status: Acute Plan to address problem: Chest pain is atypical, but patient has an abnormal ECG with nonspecific appearing anterior T wave inversions. We will proceed with an exercise thallium stress test for further assessment. (2) Paroxysmal atrial fibrillation Current Visit: Yes Status: Acute Plan to address problem: With regards to history of paroxysmal atrial fibrillation, we will maintain medical therapy with beta-blockers and oral anticoagulation with Eliquis.
[2020-06-18] MEDS: APIXABAN 5 MG TAB PO SCH ×2 (11:57→22:24)
[2020-06-18] MEDS: METOPROLOL TARTRATE 25 MG TAB PO SCH ×2 (12:00→22:24)
[2020-06-18] MEDS ORDERED: POTASSIUM CHLORIDE ER 20 MEQ TAB PO SCH (12:00)
[2020-06-18 14:49] LABS: Hematocrit 37.9 % (30.3-42.9); Hemoglobin 12.5 gm/dl (10.1-14.3); Mean Corpuscular HGB Conc 33 % (30-34); Mean Corpuscular Volume 95 fl (79-97); Platelet Count 170 K/mm3 (140-440); Red Blood Count 4.01 M/mm3 (3.65-5.03); Red Cell Distribution Width 13.5 % (13.2-15.2)
[2020-06-18 14:59] LABS: INR 1.35 (0.87-1.13)
[2020-06-18 15:00] LABS: Partial Thromboplastin Time 33.7 Sec. (24.2-36.6)
--- NOTE | 2020-06-18 15:25 | Event Note ---
Date: 06/18/20 Patient seen and examined, this is the second visit after midnight Potassium 3.0 this morning patient is refusing IV replacement for potassium Continue to replete potassium orally and repeat level in the morning Stress test canceled today and plan for tomorrow morning Continue current management and plan Continue beta-danyelle and Eliquis for paroxysmal atrial fibrillation Follow clinically
[2020-06-19 05:36] LABS: Basophils % (Auto) 0.6 % (0.0-1.8); Eosinophils # (Auto) 0.5 K/mm3 (0.0-0.4); Eosinophils % (Auto) 6.9 % (0.0-4.3); Hematocrit 37.7 % (30.3-42.9); Hemoglobin 12.6 gm/dl (10.1-14.3); Lymphocytes # (Auto) 2.7 K/mm3 (1.2-5.4); Lymphocytes % (Auto) 36.7 % (13.4-35.0); Mean Corpuscular HGB Conc 33 % (30-34); Mean Corpuscular Volume 94 fl (79-97); Monocytes # (Auto) 0.7 K/mm3 (0.0-0.8); Monocytes % (Auto) 9.8 % (0.0-7.3); Platelet Count 174 K/mm3 (140-440); Red Blood Count 4.02 M/mm3 (3.65-5.03); Red Cell Distribution Width 13.6 % (13.2-15.2)
[2020-06-19 05:58] LABS: Alanine Aminotransferase 9 units/L (7-56); Albumin 3.3 g/dL (3.9-5); BUN/Creatinine Ratio 10; Blood Urea Nitrogen 8 mg/dL (7-17); Calcium 8.2 mg/dL (8.4-10.2); Hemolysis Index 2
[2020-06-19] MEDS ORDERED: REGADENOSON 0.4 MG/5 ML INJ IV ONE (08:02)
[2020-06-19] MEDS ORDERED: FAMOTIDINE 20 MG TAB PO SCH (10:00)
[2020-06-19] MEDS ORDERED: POTASSIUM CHLORIDE ER 10 MEQ TAB PO SCH (10:00)
[2020-06-19] MEDS: APIXABAN 5 MG TAB PO SCH (10:46)
[2020-06-19] MEDS: ASPIRIN EC 81 MG TAB PO SCH (10:46)
[2020-06-19] MEDS: METOPROLOL TARTRATE 25 MG TAB PO SCH (10:47)
--- NOTE | 2020-06-19 12:44 | Event Note ---
Date: 06/19/20 Patient exercised for 6 minutes of a Rob protocol, no chest pain, nonspecific ST changes. The thallium perfusion images are pending for final interpretation of this test.
--- NOTE | 2020-06-19 13:15 | Nuclear Medicine Report ---
APPROVED REPORT Exam: Nuclear Stress Test Indication: [facility] H[facility]: 5 ft 8 in Wt: 177 lbs BSA: 1.94 m2 HR: 61 bpm BP: 137/81 mmHg BMI: 26.91 Rhythm: SUPRAVENTRICULAR RHYTHM, T WAVE ABNORM. POSS. LATERAL ISCHEMIA, TWA POSS. INFERIOR ISCHEMIA Stress Test Details Stress Test: Exercise stress testing was performed using a Rob protocol. HR Resting HR: 61 bpmMax Heart Rate (APMHR): 150 bpm Max HR Achieved: 186 bpmTarget HR (85% APMHR): 127 bpm % of APMHR: 124 Recovery HR: 75 bpm BP Resting BP: 137/81 mmHg Max BP: 167/90 mmHg Recovery BP: 140/83 mmHg ECG Resting ECG: Sinus Rhythm Stress ECG: Sinus Rhythm, Sinus Tachycardia ST Change: Nondiagnostic resting ST abnormalities Arrhythmia: APC's, short burst PAT, PVCs Recovery ECG: Sinus Rhythm Recovery ST Change: Nondiagnostic resting ST abnormalities Recovery Arrhythmia: VPC Clinical Reason for Termination: Maximal effort Stress Symptoms: None Exercise duration: 6 min 0 sec Exercise capacity: 7.2 METs Angina Score: None Stress ECG Conclusion No chest pain with exercise to 7 METS, nonspecific ST changes, myocardial perfusion images are pending final interpretation of this test. NM EXAM: Myocardial Perfusion REST/STRESS Imaging Protocol: Rest Tc-99m/Stress Tc-99m 1 day Resting Data Rest SPECT myocardial perfusion imaging was performed in supine position 45 minutes following the intravenous injection of 10 mCi of Tc-99m Myoview. Time of rest injection: 0745 Exercise Stress At peak stress, the patient was injected intravenously with 28mCi of Tc-99m Myoview. Time of stress injection: 0945 Gated Stress SPECT was performed 30 minutes after stress injection. Study Data TID = 0.94. Perfusion Nuclear Conclusion ECG Findings: non-diagnostic Clinical Findings: negative for ischemia Nuclear Findings: negative for ischemia Exercise Capacity: normal Left Ventricular Function: normal Risk Study: low Normal rest and stress perfusion images, no ischemia demonstrated on the study. Normal left ventricular systolic function with ejection fraction 62%. Conclusion No chest pain with exercise to 7 METS, nonspecific ST changes, myocardial perfusion images are pending final interpretation of this test.
[2020-06-19 13:52] VITALS: BP 117/83
[2020-06-19] MEDS ORDERED: METOPROLOL TARTRATE 50 MG TAB PO SCH (14:17)
--- NOTE | 2020-06-19 14:56 | Discharge Summary ---
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 ED work-up shows WBC 8.2, 9.1 Hemoglobin 14.5, platelets 181, sodium 141 potassium 3.3 creatinine 0.8, serum glucose 110, calcium 9.1., Troponin negative chest x-ray no acute finding. Patient was admitted and scheduled for stress test but potassium dropped to 3.0 She was repleted with potassium and reschedule stress test next day which was normal. Cardiology recommended initiate patient on Eliquis 5 mg twice daily for her history of paroxysmal atrial fib. Patient was then discharged home in stable condition with outpatient follow-up. She was recommended to continue her PPI. Disposition: [id number] HOME UNDER HOME [facility] Final Discharge Diagnosis (Prints w/discharge instructions): Atypical chest pain, likely due to GERD. Paroxysmal atrial fibrillation. Pacemaker in situ. Hypertension Time spent for discharge: 34 minutes Core Measure Documentation - Palliative Care Palliative Care/ Comfort Measures: Not Applicable - Core Measures Any of the following diagnoses?: none Exam - Physical Exam Narrative exam: GENERAL: well-developed and well-nourished elderly -Citizen Of [place] female lying on bed appeared to be in no discomfort. HEENT: Normocephalic. Atraumatic. No conjunctival congestion or icterus. Patient has moist mucous membranes. NECK: Supple. Trachea midline. CHEST/LUNGS: Clear to auscultated bilaterally, breathing nonlabored. No wheezes crackles or rhonchi. HEART/CARDIOVASCULAR: Regular in rate and rhythm. S1 and S2 positive. ABDOMEN: Abdomen is soft, nontender. Patient has normal bowel sounds. SKIN: There is no rash. Warm and dry. NEURO: No focal motor deficit. Follows command. MUSCULOSKELETAL: No joint effusion or tenderness. EXTRIMITY: No edema, no cyanosis or clubbing. PSYCH: Cooperative. - Constitutional Vitals: Temp Pulse Resp BP Pulse Ox 98.1 F 80 18 117/83 100 06/19/20 12:18 06/19/20 13:51 06/19/20 12:18 06/19/20 13:51 06/19/20 12:18 Plan Activity: advance as tolerated Weight Bearing Status: Weight Bear as Tolerated Diet: low fat, low salt Special Instructions: record daily BP diary Follow up with: PRIMARY CAREMD [Primary Care Provider] - 3-5 Days LOUIS GARCIA MD [Staff Physician] - 7 Days Prescriptions: AtorvaSTATin [Lipitor] 40 mg PO QHS #30 tablet Apixaban [Eliquis] 5 mg PO Q12HR #60 tablet Metoprolol [Lopressor TAB] 50 mg PO BID #60 tablet Pantoprazole [Protonix TAB] 40 mg PO QDAY #30 tablet
--- NOTE | 2020-06-20 11:40 | Electrocardiograph Report ---
[facility] Test Date: 2020-06-17 Test Time: 18:07:50 Pat Name: JACQUELINE RUIZ Department: Room: A491 1 Gender: F Retail Loss Prevention Officer: : 1950 Requested By: KIRIT JOHNSTON Order Number: [id number] Reading MD: Darwin Cleary Measurements Intervals [place] Rate: 62 P: 60 PA: 152 QRS: -33 QRSD: 81 T: -68 QT: 512 QTc: 518 Interpretive Statements Sinus rhythm Left axis deviation Nonspecific T wave abnormality, diffuse leads Prolonged QT interval Compared to ECG 06/12/2020 17:30:02 Electronically Signed On 06-20-2020 11:40:15 EDT by Darwin Cleary
--- NOTE | 2020-06-20 11:45 | Electrocardiograph Report ---
[facility] Test Date: 2020-06-18 Test Time: 07:21:03 Pat Name: JACQUELINE RUIZ Department: Room: A491 1 Gender: F Game Designer/Creative Director: ANSELMO : 1950 Requested By: DAVID RIOJAS Order Number: [id number] Reading MD: Darwin Cleary Measurements Intervals [place] Rate: 62 P: 61 ID: 144 QRS: -26 QRSD: 91 T: -61 QT: 421 QTc: 429 Interpretive Statements Sinus rhythm Abnormal T, consider ischemia, diffuse leads Compared to ECG 06/17/2020 18:07:50 Electronically Signed On 06-20-2020 11:45:14 EDT by Darwin Cleary
--- NOTE | 2020-06-20 11:48 | Electrocardiograph Report ---
[facility] Test Date: 2020-06-18 Test Time: 11:36:12 Pat Name: JACQUELINE RUIZ Department: Room: A491 1 Gender: F Territory Service Representative: ANSELMO : 1950 Requested By: DAVID RIOJAS Order Number: [id number] Reading MD: Darwin Cleary Measurements Intervals [place] Rate: 60 P: [place]: 156 QRS: -22 QRSD: 84 T: -77 QT: 472 QTc: 472 Interpretive Statements Atrial-paced complexes Abnormal T, consider ischemia, diffuse leads Compared to ECG 06/18/2020 07:21:03 Electronically Signed On 06-20-2020 11:47:50 EDT by Darwin Cleary
--- NOTE | 2020-06-20 12:02 | Electrocardiograph Report ---
[facility] Test Date: 2020-06-19 Test Time: 08:20:26 Pat Name: JACQUELINE RUIZ Department: Room: A491 1 Gender: F Material Expediter: SESAR : 1950 Requested By: KIRIT JOHNSTON Order Number: [id number] Reading MD: Darwin Cleary Measurements Intervals [place] Rate: 60 P: 55 AK: 168 QRS: -25 QRSD: 85 T: -50 QT: 423 QTc: 423 Interpretive Statements Atrial-paced complexes Nonspecific T abnormalities, diffuse leads Compared to ECG 06/18/2020 11:36:12 Electronically Signed On 06-20-2020 12:02:41 EDT by Darwin Cleary
--- NOTE | 2020-06-20 12:03 | Treadmill Report ---
[facility] Test Date: 2020-06-19 Test Time: 08:39:46 Pat Name: JACQUELINE RUIZ Department: Room: A491 1 Gender: F Negotiator: Ave [place] : 1950 Requested By: DARWIN GARCIA Order Number: [id number] Prerna MD: Darwin Garcia Interpretive Statements See dictated report Electronically Signed On 06-20-2020 12:03:03 EDT by Darwin Garcia
== END 2020-06-19 16:59 | disposition home health service (06) ==
LOC: ED 16:10 → 4A 06-18 02:21
PROVIDERS: ADMIT Internal Medicine Geriatric Medicine; ATTEND Internal Medicine
DX: R07.89 Other chest pain (principal); E87.6 Hypokalemia; I48.0 Paroxysmal atrial fibrillation; I10 Essential (primary) hypertension; Z79.82 Long term (current) use of aspirin; Z95.0 Presence of cardiac pacemaker; Z98.51 Tubal ligation status; Z79.899 Other long term (current) drug therapy; Z98.890 Other specified postprocedural states
CPT/HCPCS: 36415; 71046; 78452; 80048; 80053; 82565; 83036; 84132; 84484; 85025; 85027; 85610; 85730; 93005; 93017; 93306; 96365; 96372; 96375; 96376; 99285; A9270; A9502; G0378; J1650; J3480; J7040